=== PATIENT | male | born 1955 | race Caucasian/White ===

== ENCOUNTER → 2019-09-14 | Outpatient (CLI) | payer MEDICAID ==
[2019-09-14 09:21] LABS: ABSOLUTE BASOPHILS # (AUTO) 0.1 10^3/uL (0.0-0.2); ABSOLUTE LYMPHOCYTES (AUTO) 0.9 10^3/uL (0.5-4.7); ABSOLUTE MONOCYTES (AUTO) 0.7 10^3/uL (0.1-1.4); ABSOLUTE NEUT (AUTO) 6.3 10^3/uL (1.7-8.2); BASOPHILS % (AUTO) 0.7 % (0-2); EOSINOPHILS % (AUTO) 0.5 % (0-6); HEMATOCRIT 41.8 % (37.9-51.0); HEMOGLOBIN 14.6 g/dL (13.5-17.0); LYMPHOCYTES % (AUTO) 11.6 % (13-45); MEAN CORPUSCULAR HEMOGLOBIN 35.6 pg (27.0-33.4); MEAN CORPUSCULAR HGB CONC 34.9 g/dL (32.0-36.0); MEAN CORPUSCULAR VOLUME 102 fl (80-97); MONOCYTES % (AUTO) 8.3 % (3-13); PLATELET COUNT 423 10^3/uL (150-450); RED CELL DISTRIBUTION WIDTH 13.3 % (11.5-14.0); SEGMENTED NEUTROPHILS % (AUTO) 78.9 % (42-78); TOTAL CELLS COUNTED % (AUTO) 100 %
[2019-09-14 09:58] LABS: ANION GAP 18 (5-19); BLOOD UREA NITROGEN 16 mg/dL (7-20); C-REACTIVE PROTEIN 9.5 mg/L (<10.0); CALCIUM 9.8 mg/dL (8.4-10.2); CARBON DIOXIDE 19 mmol/L (22-30); CHLORIDE 92 mmol/L (98-107); GLUCOSE 136 mg/dL (75-110); POTASSIUM 4.4 mmol/L (3.6-5.0)
[2019-09-14 10:01] LABS: ERYTHROCYTE SEDIMENTATION RATE 36 mm/hr (0-20)
[2019-09-14 15:43] LABS: FLUID TYPE SYNOVIAL
[2019-09-14 15:45] LABS: FLUID APPEARANCE TURBID; FLUID COLOR RED; FLUID VISCOSITY MODERATELY VISCOUS
== END ==
LOC: OD 08:26
PROVIDERS: ATTEND Orthopaedic Surgery
DX: M25.512 Pain in left shoulder (principal)
CPT/HCPCS: 36415; 80048; 85025; 85652; 86140; 87070; 87075; 87205; 89050

== ENCOUNTER 2019-09-20 13:15 | Day surgery (SDC) | payer MEDICAID ==
[2019-09-20 09:45] LABS: APPEARANCE,URINE CLEAR; BILIRUBIN,URINE NEGATIVE (NEGATIVE); COLOR,URINE YELLOW; GLUCOSE, URINE NEGATIVE (NEGATIVE); KETONES,URINE NEGATIVE (NEGATIVE); LEUKOCYTE ESTERASE,URINE NEGATIVE (NEGATIVE); NITRITE,URINE NEGATIVE (NEGATIVE); PROTEIN,URINE NEGATIVE (NEGATIVE); URINE SPECIFIC GRAVITY 1.008; UROBILINOGEN,URINE NEGATIVE mg/dL (<2.0)
[2019-09-20 09:56] LABS: HEMATOCRIT 42.3 % (37.9-51.0); HEMOGLOBIN 14.9 g/dL (13.5-17.0); MEAN CORPUSCULAR HEMOGLOBIN 35.9 pg (27.0-33.4); MEAN CORPUSCULAR HGB CONC 35.2 g/dL (32.0-36.0); MEAN CORPUSCULAR VOLUME 102 fl (80-97); PLATELET COUNT 454 10^3/uL (150-450); RED BLOOD COUNT 4.16 10^6/uL (4.35-5.55); RED CELL DISTRIBUTION WIDTH 13.3 % (11.5-14.0); WHITE BLOOD COUNT 7.1 10^3/uL (4.0-10.5)
[2019-09-20 09:59] LABS: ADD MANUAL MICROSCOPIC YES; BACTERIA,URINE TRACE /HPF; WBC,URINE 0-1 /HPF
[2019-09-20 10:11] LABS: ANION GAP 15 (5-19); BLOOD UREA NITROGEN 15 mg/dL (7-20); CARBON DIOXIDE 19 mmol/L (22-30); CHLORIDE 95 mmol/L (98-107); GLUCOSE 134 mg/dL (75-110)
--- NOTE | 2019-09-20 10:54 | RADIOLOGY REPORT (SQ) ---
EXAM DESCRIPTION: CHEST SINGLE VIEW COMPLETED DATE/TIME: 09/20/2019 9:18 am REASON FOR STUDY: PREOP M25.512 PAIN IN LEFT SHOULDER COMPARISON: 01/30/2015 NUMBER OF VIEWS: One view. TECHNIQUE: Single frontal radiographic image of the chest acquired. LIMITATIONS: None. FINDINGS: LUNGS AND PLEURA: Stable appearance. MEDIASTINUM AND HILAR STRUCTURES: Stable heart size and mediastinal structures. HEART AND VASCULAR STRUCTURES: Stable appearance. SUPPORT DEVICES: Appropriate location without change. BONES: No acute findings. OTHER: No other significant finding. IMPRESSION: STABLE APPEARANCE OF THE CHEST. SUPPORT DEVICES UNCHANGED. TECHNICAL DOCUMENTATION: JOB ID: [id number] [employer]- All Rights Reserved Reading location - IP/workstation name: [email or web address]
[~2019-09-20 13:15] MED LIST: BUPIVACAINE INJ/PF LIPOSOME/PF 266 MG/20 ML SDV INJ PRN; CEFAZOLIN INJ 1 GM VIAL IV PRN; CEFAZOLIN INJ 1 GM VIAL ONE; DEXAMETHASONE SOD PHOSPHATE INJ 4 MG/1 ML VIAL ONE; FENTANYL CITRATE INJ/PF 250 MCG/5 ML AMPULE ONE; GLYCOPYRROLATE 1 MG/5 ML VIAL ONE; HYDROMORPHONE HCL INJ/PF 2 MG/ML AMPULE ONE; IBUPROFEN 800 MG in NORMAL SALINE 250 ML IV PRN; MIDAZOLAM 2 MG/2 ML INJ ONE; ONDANSETRON HCL INJ/PF 4 MG/2 ML SDV ONE; OXYCODONE HCL SR 10 MG TABLET PO ONE; OXYCODONE HCL SR 10 MG TABLET PO PRN; PANTOPRAZOLE SODIUM 20 MG TABLET.DR PO ONE; PANTOPRAZOLE SODIUM 20 MG TABLET.DR PO PRN; PROPOFOL INJ 200 MG/20 ML VIAL IV ONE; SUCCINYLCHOLINE CHLORIDE INJ 200 MG/10 ML VIAL ONE; TRANEXAMIC ACID INJ/PF 1,000 MG/10 ML SDV ONE; VANCOMYCIN HCL 1,000 MG in DEXTROSE 5%-WATER 250 ML IV PRN
[2019-09-20] MEDS ORDERED: DIPHENHYDRAMINE HCL 50 MG/ML VIAL IV PRN (14:01)
[2019-09-20] MEDS ORDERED: FENTANYL CITRATE INJ/PF 100 MCG/2 ML AMPUL IV PRN ×3 (14:01)
[2019-09-20] MEDS ORDERED: MORPHINE SULFATE 10 MG/ML INJ IV PRN (14:01)
[2019-09-20] MEDS ORDERED: PROMETHAZINE HCL INJ 25 MG/1 ML VIAL IV PRN (14:01)
[2019-09-20] MEDS ORDERED: MEPERIDINE HCL/PF INJ 25 MG/1 ML DISP.SYRIN IV PRN (14:01)
[2019-09-20] MEDS ORDERED: HYDROMORPHONE HCL INJ/PF 2 MG/ML AMPULE ONE (14:05)
[2019-09-20] MEDS ORDERED: ACETAMINOPHEN 1,000 MG/100 ML RTUPB IV ONE (14:05)
[2019-09-20] MEDS ORDERED: OXYCODONE HCL IR 5 MG TABLET PO PRN (14:13)
[2019-09-20] MEDS: RINGERS SOLUTION,LACTATED 1,000 ML IV PRN (16:20)
[2019-09-20] MEDS ORDERED: CEFTRIAXONE 2 GM/D5W RTU 2 GM/50 ML RTUPB IV SCH (18:00)
[2019-09-20] MEDS: IBUPROFEN 800 MG in NORMAL SALINE 250 ML IV SCH (21:08)
[2019-09-20] MEDS ORDERED: OXYCODONE HCL SR 10 MG TABLET PO SCH (22:00)
[2019-09-20] MEDS ORDERED: VANCOMYCIN HCL 1,000 MG in DEXTROSE 5%-WATER 250 ML IV SCH (22:00)
[2019-09-21] MEDS: RINGERS SOLUTION,LACTATED 1,000 ML IV PRN (04:49)
[2019-09-21] MEDS: IBUPROFEN 800 MG in NORMAL SALINE 250 ML IV SCH (05:27)
[2019-09-21 05:53] LABS: HEMATOCRIT 33.8 % (37.9-51.0); MEAN CORPUSCULAR HEMOGLOBIN 36.1 pg (27.0-33.4); MEAN CORPUSCULAR VOLUME 103 fl (80-97); PLATELET COUNT 384 10^3/uL (150-450); RED BLOOD COUNT 3.28 10^6/uL (4.35-5.55); RED CELL DISTRIBUTION WIDTH 13.3 % (11.5-14.0); WHITE BLOOD COUNT 9.2 10^3/uL (4.0-10.5)
[2019-09-21 06:05] LABS: HEMOGLOBIN 11.8 g/dL (13.5-17.0)
[2019-09-21 06:16] LABS: ANION GAP 13 (5-19); BLOOD UREA NITROGEN 15 mg/dL (7-20); CALCIUM 8.6 mg/dL (8.4-10.2); CARBON DIOXIDE 21 mmol/L (22-30); CHLORIDE 96 mmol/L (98-107); GLUCOSE 135 mg/dL (75-110); POTASSIUM 4.5 mmol/L (3.6-5.0)
--- NOTE | 2019-09-21 07:05 | PDOC DISCHARGE SUMMARY ---
Impression - Admit/DC Date/PCP Admission Date/Primary Care Provider: 09/20/19 08:57 ELZBIETA AU PA-C Discharge Date: 09/21/19 - Discharge Diagnosis (1) Prosthetic joint infection Is this a current diagnosis for this admission?: Yes - Additional Information Resuscitation Status: Full Code Discharge Diet: Regular Discharge Activity: Balance Activity w/Rest, No tub bath Referrals: ELZBIETA AU PA-C [Primary Care Provider] - Prescriptions: Amox Tr/Potassium Clavulanate [Augmentin 500-125 Tablet] 1 each PO BID #28 tablet Home Medications: Allopurinol 200 tab PO DAILY 02/23/14 Lisinopril 30 mg PO QAM 02/23/14 Tramadol HCl [Ultram 50 mg Tablet] 50 mg PO Q8A 02/23/14 Sulfamethoxazole/Trimethoprim [Bactrim Ds Tablet] 1 tab PO BID 01/30/15 Amlodipine Besylate [Norvasc 10 mg Tablet] 10 mg PO DAILY 09/17/19 Metoprolol Succinate [Toprol Xl 25 mg Tab.sr] 50 mg PO DAILY 09/17/19 Pantoprazole Sodium 40 mg PO DAILY 09/17/19 Hydrochlorothiazide [Hydrodiuril 12.5 mg Tablet] 12.5 mg PO DAILY 09/20/19 Hydrocodone/Acetaminophen [[place] 5-325 mg Tablet] 1 tab PO Q8 09/20/19 Amox Tr/Potassium Clavulanate [Augmentin 500-125 Tablet] 1 each PO BID #28 tablet 09/21/19 History of Present Illiness History of Present Illness: BRITTNEE ETIENNE is a 63 year old male 63-year-old white male approximately 6 years status post left reverse shoulder arthroplasty now with what appears to be prosthetic infection. Patient status post I&D yesterday. Pain well controlled overnight. Hospital Course Hospital Course: Patient is admitted through the operating room and undergoes an I&D of the shoulder with exchange of the glenosphere and the humeral polyethylene. He tolerates the procedure without complication. Intraoperative frozen section is notable for greater than 30 polys per high-power field. Patient started empirically on Rocephin and vancomycin. Physical Exam Vital Signs: Temp Pulse Resp BP Pulse Ox 36.3 C 58 L 16 110/59 L 99 09/21/19 00:05 09/21/19 00:05 09/21/19 00:05 09/21/19 00:05 09/21/19 00:05 Intake & Output 09/20/19 09/21/19 09/22/19 06:59 06:59 06:59 Intake Total 74036 Output Total 73505 Balance 2185 Weight 49.4 kg General appearance: PRESENT: no acute distress, mild distress Head exam: PRESENT: normocephalic Respiratory exam: PRESENT: unlabored Cardiovascular exam: PRESENT: RRR GI/Abdominal exam: PRESENT: soft Rectal exam: PRESENT: deferred Musculoskeletal exam: PRESENT: other - Left upper extremity immobilized in abduction pillow. Underlying dressings clean dry and intact. Distal neurovascular examination is intact. Neurological exam: PRESENT: alert, awake, oriented to person, oriented to place, oriented to time, oriented to situation. ABSENT: motor sensory deficit Psychiatric exam: PRESENT: appropriate affect, normal mood. ABSENT: homicidal ideation, suicidal ideation Skin exam: PRESENT: dry, intact, warm. ABSENT: cyanosis, rash Results Laboratory Results: WBC 9.2 10^3/uL (4.0-10.5) 09/21/19 03:52 RBC 3.28 10^6/uL (4.35-5.55) L 09/21/19 03:52 Hgb 11.8 g/dL (13.5-17.0) L D 09/21/19 03:52 Hct 33.8 % (37.9-51.0) L 09/21/19 03:52 MCV 103 fl (80-97) H 09/21/19 03:52 MCH 36.1 pg (27.0-33.4) H 09/21/19 03:52 MCHC 35.0 g/dL (32.0-36.0) 09/21/19 03:52 RDW 13.3 % (11.5-14.0) 09/21/19 03:52 Plt Count 384 10^3/uL (150-450) 09/21/19 03:52 Sodium 129.7 mmol/L (137-145) L 09/21/19 03:52 Potassium 4.5 mmol/L (3.6-5.0) 09/21/19 03:52 Chloride 96 mmol/L (98-107) L 09/21/19 03:52 Carbon Dioxide 21 mmol/L (22-30) L 09/21/19 03:52 Anion Gap 13 (5-19) 09/21/19 03:52 BUN 15 mg/dL (7-20) 09/21/19 03:52 Creatinine 0.84 mg/dL (0.52-1.25) 09/21/19 03:52 Est GFR ( Amer) > 60 (>60) 09/21/19 03:52 Est GFR (MDRD) Non-Af > 60 (>60) 09/21/19 03:52 Glucose 135 mg/dL (75-110) H 09/21/19 03:52 Calcium 8.6 mg/dL (8.4-10.2) 09/21/19 03:52 Urine Color YELLOW 09/20/19 09:00 Urine Appearance CLEAR 09/20/19 09:00 Urine pH 6.0 (5.0-9.0) 09/20/19 09:00 Ur Specific [place] 1.008 09/20/19 09:00 Urine Protein NEGATIVE mg/dL (NEGATIVE) 09/20/19 09:00 Urine Glucose (UA) NEGATIVE mg/dL (NEGATIVE) 09/20/19 09:00 Urine Ketones NEGATIVE mg/dL (NEGATIVE) 09/20/19 09:00 Urine Blood NEGATIVE (NEGATIVE) 09/20/19 09:00 Urine Nitrite NEGATIVE (NEGATIVE) 09/20/19 09:00 Urine Bilirubin NEGATIVE (NEGATIVE) 09/20/19 09:00 Urine Urobilinogen NEGATIVE mg/dL (<2.0) 09/20/19 09:00 Ur Leukocyte Esterase NEGATIVE (NEGATIVE) 09/20/19 09:00 Urine WBC 0-1 /HPF 09/20/19 09:00 Urine Bacteria TRACE /HPF 09/20/19 09:00 Urine Ascorbic Acid NEGATIVE (NEGATIVE) 09/20/19 09:00 Blood Type A POSITIVE 09/20/19 09:39 Antibody Screen NEGATIVE 09/20/19 09:39 Impressions: Chest X-Ray 09/20/19 00:00 IMPRESSION: STABLE APPEARANCE OF THE CHEST. SUPPORT DEVICES UNCHANGED. Plan Plan of Treatment: Patient be discharged home on a limited activity basis. Empiric antibiotics switched to Augmentin. Aloe up with Dr. Celeste and [facility] for surgery in 2 weeks for staple removal. Time Spent: Less than 30 Minutes Stroke Is this a Stroke Patient?: No Stroke Pt being discharged on Anti-thrombolytic therapy?: Yes Acute Heart Failure - Is this a Heart Failure Patient?: No
[2019-09-21 08:00] VITALS: BP 117/55
--- NOTE | 2019-09-21 09:36 | EKG REPORT ---
SEVERITY:- NORMAL ECG - SINUS RHYTHM : Confirmed by: Dallas Gipson 21-Sep-2019 09:35:16
--- NOTE | 2019-09-27 06:59 | Operative Report ---
Operative Report DATE OF SURGERY: 09/20/19 PREOPERATIVE DIAGNOSIS: Left shoulder periprosthetic abscess OPERATION: Left shoulder revision arthroplasty SURGEON: THU PALMER ANESTHESIA: GA TISSUE REMOVED OR ALTERED: Cultures to microbiology. Tissue to pathology. Implants to CSS ESTIMATED BLOOD LOSS: 100 PROCEDURE: With the patient in a beachchair position on the operative table the left upper extremity forequarter prepped and draped in sterile fashion. A standard deltopectoral approach to the shoulder was taken in line with the previous surgical approach. Upon transversing the dermis a large bloody purulent type drainage is encountered. This is sent for culture and sensitivity. The dissection continues down to the shoulder joint. Synovial tissue was sent to pathology for frozen section. Frozen section diagnosis is greater than 30 polys per high-power field. At this point the patient has a Mitchell reverse shoulder arthroplasty. Both the glenosphere as well as the humeral polyethylene insert are removed. The wound is debrided and then irrigated with 6 L normal saline containing Betadine followed by another 3 L of normal normal saline. The glenosphere and the polyethylene are replaced with new implants. The wound is then closed in layers with interrupted PDS followed by Dermabond. A shoulder immobilizer was applied and the patient's return to the PACU in satisfactory condition.
== END 2019-09-21 10:15 | disposition home or self-care (01) ==
LOC: EDSTATUS 13:15 → ASU 9 13:15 → EDSTATUS 13:15 → INOR 14:55 → 4N 14:55 → ASU 9 09-21 10:15 → UNDODISIN 09-21 10:15
PROVIDERS: ATTEND Orthopaedic Surgery
DX: T84.59XA Infection and inflammatory reaction due to other internal joint prosthesis, initial encounter (principal); Y83.8 Other surgical procedures as the cause of abnormal reaction of the patient, or of later complication, without mention of misadventure at the time of the procedure; M25.512 Pain in left shoulder; I10 Essential (primary) hypertension; Z79.899 Other long term (current) drug therapy
CPT/HCPCS: 86900; 86901; 36415; 87070; 87205; 87206; 87116; 87101; 86850; 85027 ×2; 87075; 80048 ×2; 81001; 87015; 88305 ×2; 88331 ×2; 71045; 93005; 93010; 01638; 23473; J2250; J0690; J1100; J3010; J1170; J3490 ×5; J0330; J2405; J7060; J7050; J7120 ×2; J2704; J3370; J0131; J0696; J1741; 1638

== ENCOUNTER → 2019-09-20 | Day surgery (SDC) | payer MEDICAID ==
--- NOTE | 2019-09-20 12:11 | RADIOLOGY REPORT (SQ) ---
EXAM DESCRIPTION: CT LT UPPER EXTREMITY WITH COMPLETED DATE/TIME: 09/20/2019 11:36 am REASON FOR STUDY: (M25.512)PAIN IN LEFT SHOULDER M25.512 PAIN IN LEFT SHOULDER Z01.818 ENCOUNTER F OR OTHER PREPROCEDURAL EXAMINATION COMPARISON: None. TECHNIQUE: Post IV contrast axial images through the leftshoulder with reformatted oblique coronal a nd oblique sagittal imaging windowed for bone and soft tissues. All CT scanners at this facility use dose modulation, iterative reconstruction, and/or weight based d osing when appropriate to reduce radiation dose to as low as reasonably achievable (ALARA). [facility]: Dose Right [facility]: CareDose [facility]: Dose Right [facility]: Teradose 4D [facility]: [employer] RADIATION DOSE: CT Rad equipment meets quality standard of care and radiation dose reduction techniq ues were employed. CTDIvol: 7.0 mGy. DLP: 191 mGy-cm. mGy. LIMITATIONS: Metal artifact. FINDINGS: Intact reverse shoulder arthroplasty. Components in expected location. No evidence of lo osening or infection. 1.5 cm axillary lymph node, likely reactive. Visualize lungs are clear. IMPRESSION: Intact reverse shoulder arthroplasty. TECHNICAL DOCUMENTATION: JOB ID: [id number] Quality ID # [id number]: Final reports with documentation of one or more dose reduction techniques (e.g., Au tomated exposure control, adjustment of the mA and/or kV according to patient size, use of iterative reconstruction technique) 2010 [employer]- All Rights Reserved Reading location - IP/workstation name: [email or web address]
== END ==
LOC: RAD 10:45
PROVIDERS: ATTEND Orthopaedic Surgery
DX: M25.512 Pain in left shoulder (principal); Z01.818 Encounter for other preprocedural examination